=== PATIENT | male | born 1955 | race Caucasian/White ===

== ENCOUNTER 2021-05-29 12:18 | Inpatient (IN) | payer MEDICARE, BC ==
[2021-05-23 14:20] LABS: CLARITY,URINE CLEAR (Clear); COLOR,URINE YELLOW (Yellow); GLUCOSE, URINE NEGATIVE (Neg); KETONES,URINE NEGATIVE (Neg); LEUKOCYTE ESTERASE ,URINE NEGATIVE (Neg); NITRITES, URINE NEGATIVE (Neg); OCCULT BLOOD,URINE NEGATIVE (Neg); PH,URINE 5.5 (4.8-8.0); PROTEIN,URINE NEGATIVE (Neg); UROBILINOGEN,URINE 0.2 E.U/dL (0.2-1.0)
[2021-05-23 14:24] LABS: UA COLLECTION TYPE CLN CATCH MIDSTREAM
[2021-05-23 14:31] LABS: BASOPHILS % (AUTO) 0.3 % (0-1); EOSINOPHILS # (AUTO) 0.1 X10'3 (0-0.9); EOSINOPHILS % (AUTO) 1.8 % (0-6); LYMPHOCYTES % (AUTO) 33.4 % (21-51); MEAN CORPUSCULAR HEMOGLOBIN 34.4 PG (27.0-31.0); MEAN CORPUSCULAR HGB CONC 34.1 g/dL (33.0-36.5); MEAN CORPUSCULAR VOLUME 100.7 FL (78-98); MEAN PLATELET VOLUME 9.5 FL (7.4-10.4); MONOCYTES # (AUTO) 0.5 X10'3 (0-0.9); MONOCYTES % (AUTO) 7.5 % (2-12); NEUTROPHILS # (AUTO) 3.5 X10'3 (1.8-7.7); PRE OP HEMATOCRIT 41.1 % (42.0-52.0); PRE OP PLATELET COUNT 164 X10'3 (140-440); RED BLOOD COUNT 4.08 X10'6 (4.70-6.10); RED CELL DISTRIBUTION WIDTH 13.2 % (11.5-14.5)
[2021-05-23 14:37] LABS: PRE OP PROTIME 10.8 SECONDS (9.0-12.0)
[2021-05-23 14:49] LABS: ALBUMIN 3.7 G/DL (3.4-5.0); ALBUMIN/GLOBULIN RATIO 1.2 (1.1-1.5); ALKALINE PHOSPHATASE 124 IU/L (46-116); BLOOD UREA NITROGEN 26 MG/DL (7-18); BUN/CREATININE RATIO 28.3 (5.4-32.0); CALCIUM 8.3 MG/DL (8.5-10.1); CHLORIDE 112 MMOL/L (99-107); CREATININE 0.92 MG/DL (0.60-1.10); PRE OP ANION GAP 8 (8-16); PRE OP AST 34 U/L (10-37); PRE OP BILIRUB, TOTAL 0.2 MG/DL (0.0-1.0); PRE OP GLUCOSE 93 MG/DL (70-104); PRE OP POTASSIUM 4.2 MMOL/L (3.4-5.1); PRE OP SODIUM 145 MMOL/L (135-145); TOTAL CARBON DIOXIDE 25.4 MMOL/L (24-32); TOTAL PROTEIN 6.9 G/DL (6.4-8.2); eGFR 82 ML/MIN
[2021-05-23 14:56] LABS: PRE OP ALT 88 U/L (30-65)
[~2021-05-29] VITALS: Ht 182.9 cm; Wt 77.7 kg
[2021-05-29] VITALS (14 sets, daily range): BP systolic 109–161; BP diastolic 61–80
[~2021-05-29 12:18] MED LIST: 7-OX5POW2 PO; ACET-1008 PO; ASPI-529 PO; BUSP5TAB3 PO; CALC500T11 PO; CHOL200074 PO; DOCUMENT DATE & TIME OF BETA-BLOCKER PO ONE; FERR236T3 PO; HYDR-3973 PO; LISI40TA13 PO; MAGN400C PO; METO50TA7 PO; MULT-1085 PO; PRIM50TA27 PO; SUCR1TAB PO; TOPI25TA15 PO; UBID1CAP54 PO; ceFOXitin 2GM-NS 100mL ADDvant 100 ML IV ONE; famotidine 20mg tablet PO ONE; ringers solution, lacted 1,000 ML IV SCH
[2021-05-29] MEDS ORDERED: BUPIVAcaine 0.5% inj/PF 30 ML ONE (12:53)
[2021-05-29] MEDS ORDERED: ringers solution, lacted 1,000 ML IV SCH (17:10)
[2021-05-29] MEDS ORDERED: proCHLORperazine 10 MG/2 ml inj IV PRN (17:10)
[2021-05-29] MEDS ORDERED: ondansetron/PF 4mg/2ml inj IV PRN ×2 (17:10→19:30)
[2021-05-29] MEDS ORDERED: morphine 2 MG/ML inj. syringe IV PRN (17:10)
[2021-05-29] MEDS ORDERED: meperidine/PF 25mg/ml syringe IV PRN ×3 (17:10)
[2021-05-29] MEDS ORDERED: ceFAZolin 1000mg inj ONE (17:26)
[2021-05-29] MEDS ORDERED: sevoflurane 250ml liquid IH ONE (17:27)
[2021-05-29] MEDS ORDERED: ondansetron/PF 4mg/2ml inj ONE (17:27)
[2021-05-29] MEDS ORDERED: LIDOcaine 2% (20mg/ml) 5ml vial ONE (17:29)
[2021-05-29] MEDS ORDERED: fentaNYL /PF 50mcg/ml 5ml ampule ONE (17:29)
[2021-05-29] MEDS ORDERED: propofol inj 20 ML IV ONE (17:29)
[2021-05-29] MEDS ORDERED: midazolam 1 mg/ML 2ml injection ONE (17:29)
[2021-05-29] MEDS ORDERED: dexamethasone sod phosphate 4mg/ml inj. ONE (17:30)
[2021-05-29] MEDS ORDERED: rocuronium 10mg/ml inj IV ONE ×2 (17:30→18:43)
[2021-05-29] MEDS ORDERED: BUPIVACAINE liposomal/PF 13.3 MG/ML vial IM ONE (18:57)
[2021-05-29] MEDS ORDERED: BUPIVAcaine/PF 7.5mg/ml (0.75%) 10ml vial ONE (18:57)
[2021-05-29] MEDS ORDERED: 0.9 % SODIUM CHLORIDE 10 ML VIAL ONE ×3 (19:00)
[2021-05-29] MEDS: potassium CL 20mEq in D5-1/2NS 1,000 ML IV SCH (19:30)
[2021-05-29] MEDS ORDERED: acetaminophen 1,000mg/100ml IV 100 ML IV ONE (19:39)
--- NOTE | 2021-05-29 19:50 | NUR ---
Received from OR via , accompanied by Anesthesiologist DR CHAVIS and report given by Anesthesiolgist. AWAKE AND C/O ABD PAIN. WILL MEDICATE. VITALS STABLE. DRESSING DI. KIP WITH SERO SANG IN THE BULB. ABD SOFT. HIS KEYS WERE GIVEN TO HIS NEIGHBOR RACHEL PER HIS REQUEST.
[2021-05-29] MEDS: morphine 4 MG/ML inj SYRINge IV PRN ×2 (20:13→20:21)
--- NOTE | 2021-05-29 20:20 | NUR ---
Report called to receiving nurse. Transferred via BED Belongings . Special Issues communicated to receiving nurse. AWAKE AND ORIENTED. VITALS STABLE. DRESSING DI. STATES PAIN IMPROVING. TO U RM 3022X AT THIS TIME.
--- NOTE | 2021-05-29 20:22 | NUR ---
I have received report from Henrik DUBOSE by telephone and had the opportunity to ask questions and assume patient care.
[2021-05-29] MEDS: ceFAZolin inj. 1,000 MG in dextrose 5%-water 50ml 50 ML IV SCH (23:01)
[2021-05-29] MEDS: gabapentin 400mg capsule PO SCH (23:01)
[2021-05-29] MEDS: HYDROmorphone inj. 0.5 MG/0.5 ML DISP.SYRIN IV PRN (23:02)
[2021-05-30] VITALS (7 sets, daily range): BP systolic 129–152; BP diastolic 64–74
[2021-05-30] MEDS: HYDROcodone/acetaminophen 10/325mg tab PO PRN ×4 (00:44→19:15)
[2021-05-30] MEDS: potassium CL 20mEq in D5-1/2NS 1,000 ML IV SCH ×3 (03:30→16:23)
[2021-05-30] MEDS: HYDROmorphone inj. 0.5 MG/0.5 ML DISP.SYRIN IV PRN ×3 (03:31→12:18)
--- NOTE | 2021-05-30 06:43 | NUR ---
Problems reprioritized. Patient report given, questions answered & plan of care reviewed with ALANA DUBOSE.
--- NOTE | 2021-05-30 06:51 | NUR ---
Patient in room PCU 3025. I have received report from GRACY Blanchard and had the opportunity to ask questions and assume patient care.
[2021-05-30] MEDS: gabapentin 400mg capsule PO SCH ×2 (07:49→16:23)
[2021-05-30 07:54] LABS: BASOPHILS % (AUTO) 0.2 % (0-1); EOSINOPHILS % (AUTO) 0.1 % (0-6); HEMATOCRIT 41.1 % (42.0-52.0); HEMOGLOBIN 14.1 g/dl (14.0-17.9); LYMPHOCYTES # (AUTO) 2.3 X10'3 (1.1-4.8); LYMPHOCYTES % (AUTO) 27.6 % (21-51); MEAN CORPUSCULAR HEMOGLOBIN 34.6 PG (27.0-31.0); MEAN CORPUSCULAR HGB CONC 34.3 g/dL (33.0-36.5); MEAN PLATELET VOLUME 9.3 FL (7.4-10.4); MONOCYTES # (AUTO) 0.7 X10'3 (0-0.9); MONOCYTES % (AUTO) 8.5 % (2-12); NEUTROPHILS # (AUTO) 5.2 X10'3 (1.8-7.7); NEUTROPHILS % (AUTO) 63.6 % (42-75); PLATELET COUNT 158 X10'3 (140-440); RED BLOOD COUNT 4.06 X10'6 (4.70-6.10); RED CELL DISTRIBUTION WIDTH 13.2 % (11.5-14.5); WHITE BLOOD COUNT 8.2 X10'3 (4.5-11.0)
[2021-05-30] MEDS: ceFAZolin inj. 1,000 MG in dextrose 5%-water 50ml 50 ML IV SCH ×2 (09:24→16:23)
[2021-05-30] MEDS ORDERED: magnesium hydroxide 30ml (MOM) UD suspension PO ONE (14:00)
[2021-05-30] MEDS: HYDROmorphone 1 mg/ml syringe IV PRN ×2 (16:23→22:03)
[2021-05-30] MEDS: sucralfate 1 gm tablet PO SCH (19:53)
[2021-05-30] MEDS: topiramate 25mg tablet PO SCH (19:53)
[2021-05-30] MEDS: busPIRone 15mg tablet PO SCH (19:53)
[2021-05-30] MEDS ORDERED: HYDROcodone/acetaminophen 10/325mg tab PO SCH (20:00)
[2021-05-30] MEDS: acetaminophen 325mg tablet PO SCH (21:00)
[2021-05-30] MEDS: primidone 50mg tablet PO SCH (21:51)
[2021-05-31] MEDS: gabapentin 400mg capsule PO SCH ×4 (00:22→23:13)
[2021-05-31] MEDS: HYDROcodone/acetaminophen 10/325mg tab PO PRN ×4 (00:23→23:13)
[2021-05-31] MEDS: potassium CL 20mEq in D5-1/2NS 1,000 ML IV SCH ×2 (01:30→10:45)
[2021-05-31 02:00] VITALS: BP 156/76
[2021-05-31] MEDS: HYDROmorphone 1 mg/ml syringe IV PRN ×5 (04:14→20:53)
[2021-05-31 06:21] LABS: BASOPHILS % (AUTO) 0.2 % (0-1); EOSINOPHILS % (AUTO) 0.7 % (0-6); HEMATOCRIT 40.7 % (42.0-52.0); HEMOGLOBIN 13.9 g/dl (14.0-17.9); LYMPHOCYTES # (AUTO) 1.8 X10'3 (1.1-4.8); LYMPHOCYTES % (AUTO) 25.9 % (21-51); MEAN CORPUSCULAR HEMOGLOBIN 34.9 PG (27.0-31.0); MEAN CORPUSCULAR HGB CONC 34.2 g/dL (33.0-36.5); MEAN PLATELET VOLUME 9.1 FL (7.4-10.4); MONOCYTES # (AUTO) 0.7 X10'3 (0-0.9); NEUTROPHILS # (AUTO) 4.4 X10'3 (1.8-7.7); NEUTROPHILS % (AUTO) 63.2 % (42-75); PLATELET COUNT 157 X10'3 (140-440); RED BLOOD COUNT 3.99 X10'6 (4.70-6.10); RED CELL DISTRIBUTION WIDTH 13.5 % (11.5-14.5); WHITE BLOOD COUNT 6.9 X10'3 (4.5-11.0)
--- NOTE | 2021-05-31 06:26 | NUR ---
Problems reprioritized. Patient report given, questions answered & plan of care reviewed with GRACY Laguerre.
--- NOTE | 2021-05-31 06:59 | NUR ---
Patient in room PCU 3025. I have received report from Camelia Lo and had the opportunity to ask questions and assume patient care.
[2021-05-31 07:06] VITALS: BP 152/80
[2021-05-31] MEDS ORDERED: UBIDECARENONE PO SCH (08:00)
[2021-05-31] MEDS: acetaminophen 325mg tablet PO SCH ×3 (08:00→21:00)
[2021-05-31] MEDS ORDERED: VIT E ACETATE PO SCH (08:00)
[2021-05-31] MEDS ORDERED: [UNRECOGNIZED DRUG - OTHER] PO SCH (08:00)
[2021-05-31] MEDS ORDERED: FERROUS GLUCONATE 65 MG PO SCH (08:00)
[2021-05-31] MEDS: topiramate 25mg tablet PO SCH ×2 (08:01→20:55)
[2021-05-31] MEDS: busPIRone 15mg tablet PO SCH ×2 (08:01→19:23)
[2021-05-31] MEDS: primidone 50mg tablet PO SCH ×3 (08:01→20:56)
[2021-05-31] MEDS: cholecalciferol (vitamin D3) 1,000 unit (25mcg) tablet PO SCH (08:02)
[2021-05-31] MEDS: sucralfate 1 gm tablet PO SCH ×2 (08:02→19:24)
[2021-05-31] MEDS: multivitamins, therapeutics tablet PO SCH (08:02)
[2021-05-31] MEDS: magnesium oxide 400mg tablet PO SCH (08:02)
[2021-05-31] MEDS: calcium carbonate 500mg chew tablet PO SCH (08:02)
[2021-05-31] MEDS: metoprolol succinate 25mg (24-HOUR) SR. Tablet PO SCH (08:02)
[2021-05-31] MEDS: aspirin 81mg, enteric-coated 1 TAB TABLET.DR PO SCH (08:02)
[2021-05-31] MEDS: lisinopril 20mg tablet PO SCH (08:03)
[2021-05-31 15:00] VITALS: BP 100/66
--- NOTE | 2021-05-31 16:32 | NUR ---
PT up this shift twice ambulating with gait belt and stand by assistance. distance 100 feet in the morning, and 600 feet in the late afternoon. tolerated activity well.
[2021-05-31 18:00] VITALS: BP 109/68
--- NOTE | 2021-05-31 18:28 | NUR ---
Problems reprioritized. Patient report given, questions answered & plan of care reviewed with pierre DUBOSE.
--- NOTE | 2021-05-31 18:30 | NUR ---
Patient in room U 3025. I have received report from GRACY Laguerre and had the opportunity to ask questions and assume patient care. Addendum: 05/31/21 at 1859 by Helena Mcrae RN Amended: Links added.
[2021-05-31 22:14] VITALS: BP 117/61
[2021-06-01] MEDS: HYDROmorphone 1 mg/ml syringe IV PRN ×6 (03:01→23:32)
[2021-06-01] MEDS: HYDROcodone/acetaminophen 10/325mg tab PO PRN ×5 (05:16→21:24)
--- NOTE | 2021-06-01 05:22 | NUR ---
pt up to bathroom no gas passed , pt states feels may pass soon. Addendum: 06/01/21 at 0522 by Helena Mcrae RN Amended: Links added.
--- NOTE | 2021-06-01 06:25 | NUR ---
Problems reprioritized. Patient report given, questions answered & plan of care reviewed with GRACY Avalos. Addendum: 06/01/21 at 0625 by Helena Mcrae RN Amended: Links added.
[2021-06-01 06:54] LABS: BASOPHILS % (AUTO) 0.5 % (0-1); EOSINOPHILS # (AUTO) 0.3 X10'3 (0-0.9); EOSINOPHILS % (AUTO) 4.6 % (0-6); HEMATOCRIT 39.2 % (42.0-52.0); HEMOGLOBIN 13.4 g/dl (14.0-17.9); LYMPHOCYTES # (AUTO) 1.8 X10'3 (1.1-4.8); LYMPHOCYTES % (AUTO) 30.5 % (21-51); MEAN CORPUSCULAR HEMOGLOBIN 34.9 PG (27.0-31.0); MEAN CORPUSCULAR HGB CONC 34.1 g/dL (33.0-36.5); MEAN CORPUSCULAR VOLUME 102.1 FL (78-98); MEAN PLATELET VOLUME 9.2 FL (7.4-10.4); MONOCYTES # (AUTO) 0.7 X10'3 (0-0.9); MONOCYTES % (AUTO) 11.5 % (2-12); NEUTROPHILS # (AUTO) 3.1 X10'3 (1.8-7.7); NEUTROPHILS % (AUTO) 52.9 % (42-75); PLATELET COUNT 155 X10'3 (140-440); RED BLOOD COUNT 3.83 X10'6 (4.70-6.10); RED CELL DISTRIBUTION WIDTH 13.3 % (11.5-14.5); WHITE BLOOD COUNT 5.8 X10'3 (4.5-11.0)
[2021-06-01 07:00] VITALS: BP 105/56
--- NOTE | 2021-06-01 07:36 | NUR ---
Patient in room PCU 3025. I have received report from JEREMIE DUBOSE and had the opportunity to ask questions and assume patient care.
[2021-06-01] MEDS: acetaminophen 325mg tablet PO SCH ×3 (08:00→19:23)
[2021-06-01] MEDS: lisinopril 20mg tablet PO SCH (08:00)
[2021-06-01] MEDS: metoprolol succinate 25mg (24-HOUR) SR. Tablet PO SCH (08:00)
[2021-06-01] MEDS: cholecalciferol (vitamin D3) 1,000 unit (25mcg) tablet PO SCH (08:24)
[2021-06-01] MEDS: sucralfate 1 gm tablet PO SCH ×2 (08:26→19:22)
[2021-06-01] MEDS: gabapentin 400mg capsule PO SCH ×3 (08:26→23:28)
[2021-06-01] MEDS: primidone 50mg tablet PO SCH ×3 (08:26→19:22)
[2021-06-01] MEDS: calcium carbonate 500mg chew tablet PO SCH (08:27)
[2021-06-01] MEDS: aspirin 81mg, enteric-coated 1 TAB TABLET.DR PO SCH (08:27)
[2021-06-01] MEDS: magnesium oxide 400mg tablet PO SCH (08:27)
[2021-06-01] MEDS: multivitamins, therapeutics tablet PO SCH (08:28)
[2021-06-01] MEDS: busPIRone 15mg tablet PO SCH ×2 (08:28→19:22)
[2021-06-01] MEDS: topiramate 25mg tablet PO SCH ×2 (08:29→19:22)
--- NOTE | 2021-06-01 08:37 | NUR ---
HELD PATIENT B/P MEDS. SYSTOLIC B/P CHARTED DROPPED OVER 50 POINTS ON 05/31 POST B/P MED ADMINISTRATION.
[2021-06-01] MEDS ORDERED: methylnaltrexone br 12mg/0.6ml inj***SubQ only SQ ONE (10:10)
[2021-06-01 11:29] VITALS: BP 98/58
[2021-06-01 15:25] VITALS: BP 130/72
[2021-06-01 18:00] VITALS: BP 127/67
--- NOTE | 2021-06-01 18:00 | NUR ---
Patient in room PCU 3025. I have received report from NIELS DUBOSE and had the opportunity to ask questions and assume patient care.
[2021-06-01 22:00] VITALS: BP 97/58
[2021-06-02 02:00] VITALS: BP 121/62
[2021-06-02] MEDS: HYDROcodone/acetaminophen 10/325mg tab PO PRN ×3 (03:09→12:27)
[2021-06-02] MEDS: HYDROmorphone 1 mg/ml syringe IV PRN ×2 (04:20→09:47)
--- NOTE | 2021-06-02 06:12 | NUR ---
Problems reprioritized. Patient report given, questions answered & plan of care reviewed with VANESSA DUBOSE.
[2021-06-02 06:14] LABS: BASOPHILS % (AUTO) 0.5 % (0-1); EOSINOPHILS # (AUTO) 0.4 X10'3 (0-0.9); EOSINOPHILS % (AUTO) 6.8 % (0-6); HEMATOCRIT 38.3 % (42.0-52.0); LYMPHOCYTES # (AUTO) 1.6 X10'3 (1.1-4.8); LYMPHOCYTES % (AUTO) 30.5 % (21-51); MEAN CORPUSCULAR HEMOGLOBIN 34.9 PG (27.0-31.0); MEAN CORPUSCULAR HGB CONC 33.8 g/dL (33.0-36.5); MEAN CORPUSCULAR VOLUME 103.2 FL (78-98); MEAN PLATELET VOLUME 9.2 FL (7.4-10.4); MONOCYTES # (AUTO) 0.5 X10'3 (0-0.9); MONOCYTES % (AUTO) 9.9 % (2-12); NEUTROPHILS # (AUTO) 2.8 X10'3 (1.8-7.7); NEUTROPHILS % (AUTO) 52.3 % (42-75); PLATELET COUNT 165 X10'3 (140-440); RED BLOOD COUNT 3.72 X10'6 (4.70-6.10); RED CELL DISTRIBUTION WIDTH 13.4 % (11.5-14.5); WHITE BLOOD COUNT 5.3 X10'3 (4.5-11.0)
--- NOTE | 2021-06-02 06:20 | NUR ---
Patient in room PCU 3025. I have received report from Lo DUBOSE and had the opportunity to ask questions and assume patient care. Pt supine in bed, HOB at 40 degrees, verbal and pleasant. no sob. Safety measures in place. no s/sx acute distress.
[2021-06-02 07:00] VITALS: BP 108/63
[2021-06-02] MEDS: topiramate 25mg tablet PO SCH (07:42)
[2021-06-02] MEDS: primidone 50mg tablet PO SCH ×2 (07:42→12:27)
[2021-06-02] MEDS: magnesium oxide 400mg tablet PO SCH (07:42)
[2021-06-02] MEDS: busPIRone 15mg tablet PO SCH (07:42)
[2021-06-02] MEDS: cholecalciferol (vitamin D3) 1,000 unit (25mcg) tablet PO SCH (07:42)
[2021-06-02] MEDS: multivitamins, therapeutics tablet PO SCH (07:43)
[2021-06-02] MEDS: lisinopril 20mg tablet PO SCH (07:44)
[2021-06-02] MEDS: gabapentin 400mg capsule PO SCH ×2 (07:45→16:13)
[2021-06-02] MEDS: metoprolol succinate 25mg (24-HOUR) SR. Tablet PO SCH (07:45)
[2021-06-02] MEDS: sucralfate 1 gm tablet PO SCH (07:46)
[2021-06-02] MEDS: aspirin 81mg, enteric-coated 1 TAB TABLET.DR PO SCH (07:46)
[2021-06-02] MEDS: calcium carbonate 500mg chew tablet PO SCH (07:46)
[2021-06-02] MEDS: acetaminophen 325mg tablet PO SCH ×2 (08:00→13:00)
[2021-06-02 11:00] VITALS: BP 102/65
--- NOTE | 2021-06-02 12:06 | NUR ---
Tylenol 975mg morning dose held, d/t norco administered instead. "PAGER ID: [phone] MESSAGE: RE: Richie Zepeda: [id number]: Can we reduce or D/C the tylenol 975mg TID routine order? he also takes [place] Q4 hours. too much tylenol. -Mica Whiteside #[phone]" Addendum: 06/02/21 at [address] by Mica [address] RN Dr. Chirinos notified via page.
--- NOTE | 2021-06-02 12:08 | NUR ---
Dr Chirinos to see pt. Per Dr. Chirinos, "pt is being discharged."
[2021-06-02 15:00] VITALS: BP 96/56
[2021-06-02] MEDS ORDERED: magnesium citrate 296ml oral solution PO ONE (15:00)
--- NOTE | 2021-06-02 16:20 | NUR ---
Pt stable for discharge per MD orders. all discharge instructions reviewed [facility] pt and all questions answered. Follow up appointment scheduling to be done by pt per pt request. no new Rx. PIV discontinued. Cannula intact. potline monitor discontinued. Belongings collected and sent with pt. pt wheeled to [employer] where he left in private vehicle. pt let without SOB, no s/sx acute distress.
== END 2021-06-02 16:19 | disposition home or self-care (01) | DRG 354 ==
LOC: PAS 12:18 → PCU 3S 19:26
PROVIDERS: ADMIT Surgery; ATTEND Surgery
PROC: 0WJF4ZZ Inspection of Abdominal Wall, Percutaneous Endoscopic Approach (ICD-10-PCS; 2021-05-29)
PROC: 3E0T3BZ Introduction of Anesthetic Agent into Peripheral Nerves and Plexi, Percutaneous Approach (ICD-10-PCS; 2021-05-29)
PROC: 3E0T33Z Introduction of Anti-inflammatory into Peripheral Nerves and Plexi, Percutaneous Approach (ICD-10-PCS; 2021-05-29)
PROC: 0WUF0JZ Supplement Abdominal Wall with Synthetic Substitute, Open Approach (ICD-10-PCS; principal; 2021-05-29 17:27)
DX: K43.2 Incisional hernia without obstruction or gangrene (principal); K56.7 Ileus, unspecified; I10 Essential (primary) hypertension; F41.9 Anxiety disorder, unspecified; K21.9 Gastro-esophageal reflux disease without esophagitis; F32.9 Major depressive disorder, single episode, unspecified; Z79.899 Other long term (current) drug therapy; Z98.84 Bariatric surgery status; Z53.31 Laparoscopic surgical procedure converted to open procedure
CPT/HCPCS: 36415; 71046; 80053; 81003; 82948; 85025; 85610; 85730; 93005; A4215; A4618; A6258; A6402; A7000; C1758; C1781; C9290; G0378; J0131; J0690; J0694; J1100; J1170; J2001; J2175; J2212; J2250; J2270; J2405; J2704; J3010; J3480; J3490; J7060; J7120; U0003; U0005